=== PATIENT | female | born 1945 | race Caucasian/White ===

== ENCOUNTER → 2018-09-28 | Day surgery (SDC) | payer MEDICARE, BC ==
[2018-09-18 15:32] LABS: BASOPHILS # (AUTO) 0.1 (0.0-0.1); BASOPHILS % 1.1 % (0.0-1.0); EOSINOPHILS # (AUTO) 0.2 (0.0-0.4); EOSINOPHILS % 2.4 % (0.0-6.0); HEMATOCRIT 41.4 % (34.2-44.1); HEMOGLOBIN 13.5 g/dL (12.0-16.0); LYMPHOCYTES # (AUTO) 1.6 (1.0-3.2); LYMPHOCYTES % 21.7 % (18.0-39.1); MEAN CORPUSCULAR HEMOGLOBIN 27.5 pg (28-32); MEAN CORPUSCULAR HGB CONC 32.6 g/dL (31-35); MEAN CORPUSCULAR VOLUME 84.3 fL (81-99); MONOCYTES # (AUTO) 0.6 (0.2-0.8); MONOCYTES % 7.6 % (4.4-11.3); NEUTROPHILS % 66.9 % (38.7-80.0); PLATELET COUNT 368 x10e3/uL (140-360); RED BLOOD COUNT 4.91 x10e6/uL (3.6-5.1); RED CELL DISTRIBUTION WIDTH 13.6 % (11.7-14.4)
[2018-09-18 15:52] LABS: ANION GAP 16.5 mmol/L (8-16); CALCIUM 9.5 mg/dL (8.4-10.2); CREATININE, SERUM 1.31 mg/dL (0.57-1.11); POTASSIUM 3.5 mmol/L (3.5-5.1)
[~2018-09-28] MED LIST: ASPIR 8181 MG PO; BUPIVACAINE HC 0.75% PF 10ML VIAL INJ ONE; CHONDR SU A NA/HYALUR SOD 1 EACH KIT IO ONE; CYCLOPENTOLATE HCL 1% OPTH SOLN 2ML BTL ONE; EPINEPHRINE HCL 1:1000 1ML 1 MG/ML AMP ONE; FENTANYL CITRATE/PF 100MCG/2 ML INJ ONE; GATIFLOXACIN(OPTH) 5 ML LIQD ONE; HYDROCHLOROTHIA25 MG PO; JARDIANCE PO; LEXAPRO10 MG PO; LIDOCAINE 2% /EPINEPHRINE 20 ML SDV INJ ONE; LIDOCAINE HCL-PF 4% 40 MG/1 ML 5ML AMP ONE; METFORMIN HCL500 MG PO; MIDAZOLAM HCL 2 MG/2 ML VIAL ONE; OMEPRAZOLE40 MG PO; PHENYLEPHRINE HCL 2 ML DROPS ONE; PILOCARPINE HCL(OPTH) 15 ML LIQD ONE; POVIDONE IODINE 5% (OPTH) 30 ML BTL ONE; PROPOFOL IV EMULSION 10 MG/ML 20 ML VIAL ONE; TOBRAMYCIN/DEXAMETHASONE(OPTH) 3.5 GM TUBE ONE
[2018-09-28 10:35] VITALS: BP 107/65
== END | disposition home or self-care (01) ==
LOC: OR 06:50
PROVIDERS: ATTEND Ophthalmology
DX: H25.12 Age-related nuclear cataract, left eye (principal); F32.9 Major depressive disorder, single episode, unspecified; K21.9 Gastro-esophageal reflux disease without esophagitis; E11.9 Type 2 diabetes mellitus without complications; N20.0 Calculus of kidney; Z01.810 Encounter for preprocedural cardiovascular examination; Z01.812 Encounter for preprocedural laboratory examination; Z79.84 Long term (current) use of oral hypoglycemic drugs; Z79.82 Long term (current) use of aspirin
CPT/HCPCS: 36415 ×2; 66982; 80048; 82948; 85025; 93005; J0171; J2001; J2250; J2704; V2632; J3010

== ENCOUNTER → 2018-11-23 | Day surgery (SDC) | payer MEDICARE, BC ==
[2018-11-09 16:57] LABS: BASOPHILS # (AUTO) 0.1 (0.0-0.1); BASOPHILS % 1.2 % (0.0-1.0); EOSINOPHILS # (AUTO) 0.2 (0.0-0.4); EOSINOPHILS % 2.5 % (0.0-6.0); HEMATOCRIT 41.5 % (34.2-44.1); HEMOGLOBIN 13.1 g/dL (12.0-16.0); LYMPHOCYTES # (AUTO) 1.8 (1.0-3.2); LYMPHOCYTES % 23.7 % (18.0-39.1); MEAN CORPUSCULAR HEMOGLOBIN 26.6 pg (28-32); MEAN CORPUSCULAR HGB CONC 31.6 g/dL (31-35); MEAN CORPUSCULAR VOLUME 84.3 fL (81-99); MONOCYTES # (AUTO) 0.5 (0.2-0.8); MONOCYTES % 6.4 % (4.4-11.3); NEUTROPHILS # (AUTO) 4.9 (2.1-6.9); NEUTROPHILS % 65.9 % (38.7-80.0); PLATELET COUNT 394 x10e3/uL (140-360); RED BLOOD COUNT 4.92 x10e6/uL (3.6-5.1); RED CELL DISTRIBUTION WIDTH 14.3 % (11.7-14.4)
[~2018-11-23] MED LIST changes: +BALANCED SALT SOLN (OPTH) 15 ML BTL IO ONE; -CHONDR SU A NA/HYALUR SOD 1 EACH KIT IO ONE; +LIDOCAINE HCL 2% LOCAL INJ 5 ML SDV VIAL INJ ONE
[2018-11-23 09:25] VITALS: BP 116/88
== END | disposition home or self-care (01) ==
LOC: OR 05:57
PROVIDERS: ATTEND Ophthalmology
DX: H25.11 Age-related nuclear cataract, right eye (principal); K21.9 Gastro-esophageal reflux disease without esophagitis; F32.9 Major depressive disorder, single episode, unspecified; F03.90 Unspecified dementia, unspecified severity, without behavioral disturbance, psychotic disturbance, mood disturbance, and anxiety; Z01.812 Encounter for preprocedural laboratory examination; Z79.82 Long term (current) use of aspirin; Z79.84 Long term (current) use of oral hypoglycemic drugs
CPT/HCPCS: 36415 ×2; 66982; 82948; 85025; J0171; J2001 ×2; J2250; J2704; J3010; V2632

== ENCOUNTER 2020-01-04 16:36 | Observation (INO) | payer MEDICARE, BC ==
[~2020-01-04] VITALS: Ht 149.9 cm; Wt 65.3 kg
[~2020-01-04 16:36] MED LIST changes: -BALANCED SALT SOLN (OPTH) 15 ML BTL IO ONE; -BUPIVACAINE HC 0.75% PF 10ML VIAL INJ ONE; -CYCLOPENTOLATE HCL 1% OPTH SOLN 2ML BTL ONE; -EPINEPHRINE HCL 1:1000 1ML 1 MG/ML AMP ONE; -FENTANYL CITRATE/PF 100MCG/2 ML INJ ONE; -GATIFLOXACIN(OPTH) 5 ML LIQD ONE; -LIDOCAINE 2% /EPINEPHRINE 20 ML SDV INJ ONE; -LIDOCAINE HCL 2% LOCAL INJ 5 ML SDV VIAL INJ ONE; -LIDOCAINE HCL-PF 4% 40 MG/1 ML 5ML AMP ONE; -MIDAZOLAM HCL 2 MG/2 ML VIAL ONE; -PHENYLEPHRINE HCL 2 ML DROPS ONE; -PILOCARPINE HCL(OPTH) 15 ML LIQD ONE; -POVIDONE IODINE 5% (OPTH) 30 ML BTL ONE; -PROPOFOL IV EMULSION 10 MG/ML 20 ML VIAL ONE; -TOBRAMYCIN/DEXAMETHASONE(OPTH) 3.5 GM TUBE ONE
[2020-01-04 17:21] LABS: BASOPHILS # (AUTO) 0.1 (0.0-0.1); BASOPHILS % 1.1 % (0.0-1.0); EOSINOPHILS # (AUTO) 0.1 (0.0-0.4); EOSINOPHILS % 1.2 % (0.0-6.0); HEMATOCRIT 38.5 % (34.2-44.1); HEMOGLOBIN 12.3 g/dL (12.0-16.0); LYMPHOCYTES # (AUTO) 0.8 (1.0-3.2); LYMPHOCYTES % 11.2 % (18.0-39.1); MEAN CORPUSCULAR HEMOGLOBIN 27.6 pg (28-32); MEAN CORPUSCULAR HGB CONC 31.9 g/dL (31-35); MEAN CORPUSCULAR VOLUME 86.3 fL (81-99); MONOCYTES # (AUTO) 0.6 (0.2-0.8); MONOCYTES % 8.3 % (4.4-11.3); NEUTROPHILS # (AUTO) 5.8 (2.1-6.9); NEUTROPHILS % 77.9 % (38.7-80.0); PLATELET COUNT 265 x10e3/uL (140-360); RED BLOOD COUNT 4.46 x10e6/uL (3.6-5.1)
--- NOTE | 2020-01-04 17:31 | Emergency Department Note ---
History of Present Illnes History of Present Illness Chief Complaint: Neurological History of Present Illness This is a 74 year old female Chief Complaint Comment Patient in from home via EMS with reports of confusion and a fall at home. Patient reports that she was sitting on the side of the bed and slipped down onto the floor on to her bottom. Patient reports that she was having trouble getting up so she called her friend and neighbor to come and help her. Per friend who is in the room with her, the patient was confused at home and vomiting a lot and said that she has not been "normal" since. Per EMS, the patient was able to respond to questions but was slow to answer and her blood sugar was over 300. Historian: Patient, Friend, Music Sound Light Technician/EMS Arrival Mode: [facility] Can Reforming Machine Operator Required: No Onset (how long ago): day(s) (4) Location: None Quality: confusion Radiation: Reports non-radiation Severity: mild Onset quality: gradual Duration (how long): day(s) (4) Timing of current episode: constant Progression: worsening Chronicity: new Context: Reports recent illness (Diarrhea); Denies recent surgery Relieving factors: none Exacerbating factors: none Associated symptoms: Reports denies other symptoms Treatments prior to arrival: none Past Medical/Family History Physician Review I have reviewed the patient's past medical and family history. Any updates have been documented here. Past Medical History Recent Fever: No Clinical Suspicion of Infectio: No New/Unexplained Change in Ment: Yes Past Medical History: Diabetes, Depression, Hyperlipedemia Other Medical History: DEPRESSION FLUID RETENTION Past Surgical History: T&A Other Surgery: RIGHT KNEE Other Last Tetanus: UNKNOWN Review of Systems Review of Systems Constitutional: Reports malaise EENTM: Reports no symptoms Cardiovascular: Reports no symptoms Respiratory: Reports no symptoms Gastrointestinal: Reports no symptoms Genitourinary: Reports no symptoms Musculoskeletal: Reports no symptoms Integumentary: Reports no symptoms Neurological: Reports as per HPI Psychological: Reports no symptoms Endocrine: Reports no symptoms Hematological/Lymphatic: Reports no symptoms Physical Exam Related Data Allergies: Coded Allergies: codeine (Verified Allergy, Unknown, 01/04/20) Triage Vital Signs Vital Signs Date Time Temp Pulse Resp B/P (MAP) Pulse Ox O2 Delivery O2 Flow Rate FiO2 01/04/20 16:51 98.1 96 16 115/72 100 Room Air Vital signs reviewed: Yes Physical Exam CONSTITUTIONAL Constitutional: Present well-developed, Present well-nourished HENT HENT: Present normocephalic, Present atraumatic, Present oropharynx clear/mois t, Present nose normal HENT L/R: Present left ext ear normal, Present right ext ear normal EYES Eyes: Reports PERRL, Reports conjunctivae normal NECK Neck: Present ROM normal PULMONARY Pulmonary: Present effort normal, Present breath sounds normal CARDIOVASCULAR Cardiovascular: Present regular rhythm, Present heart sounds normal, Present capillary refill normal, Present normal rate GASTROINTESTINAL Abdominal: Present soft, Present nontender, Present bowel sounds normal GENITOURINARY Genitourinary: Present exam deferred SKIN Skin: Present warm, Present dry MUSCULOSKELETAL Musculoskeletal: Present ROM normal NEUROLOGICAL Neurological: Present alert, Present oriented x 3, Present no gross motor or sensory deficits PSYCHOLOGICAL Psychological: Present mood/affect normal, Present judgement normal Results Laboratory Laboratory Laboratory Tests Test 01/04/20 17:08 Assessment & Plan Medical Decision Making MDM 74 y.o f presents for fall off of bed and confusion. Stroke vs infection vs dementia among others. Ct, labs, cardiacs, EKG ordered. Admit to [facility] for PNA. darwin Perla given Assessment & Plan Final Impression: (1) Pneumonia Depart Disposition: ADMITTED Last Vital Signs Date Time Temp Pulse Resp B/P (MAP) Pulse Ox O2 Delivery O2 Flow Rate FiO2 01/04/20 16:51 98.1 96 16 115/72 100 Room Air Home Meds Reported Medications Omeprazole (OMEPRAZOLE) 40 Mg Capsule.dr, 20 MG PO DAILY 09/18/18 Metformin Hcl (METFORMIN HCL) 500 Mg Tablet, 500 MG PO BID, #60 TAB 09/18/18 Escitalopram Oxalate (LEXAPRO) 10 Mg Tablet, 20 MG PO DAILY, #30 TAB 09/18/18 [Jardiance] No Conflict Check, 100 MG PO DAILY 09/18/18 Aspirin (ASPIR 81) 81 Mg Tablet., 81 MG PO DAILY 09/18/18 АННА ANNE MD Jan 04, 2020 17:31
[2020-01-04 17:35] LABS: INR 0.88; PROTHROMBIN TIME 12.4 seconds (11.9-14.5)
--- NOTE | 2020-01-04 17:36 | Diagnostic Imaging Report ---
CT BRAIN WO HISTORY: Right hand numbness COMPARISON: None. Technique: Noncontrast axial scans were obtained from skull base to the vertex. Coronal and sagittal reconstructions obtained from the axial data. One or more of the following dose reduction techniques were used: Automated exposure control, adjustment of the mA and/or kV according to patient size, and/or utilization of iterative reconstruction technique. DISCUSSION: Scalp/Skull: Unremarkable. Brain sulci: Mildly prominent. Ventricles: Compensatory dilatation. Extra-axial spaces: No masses or fluid collections. Carotid and vertebral artery calcifications are present. Parenchyma: Mild bilateral deep white matter hypodensity is likely chronic microvascular ischemic change. Otherwise, no masses, hemorrhage, or large vascular territory acute infarct. Dural sinuses: No abnormal densities. Sellar/Suprasellar region: Intact. Skull base: Intact. Incidental findings: None. IMPRESSION: 1. No acute intracranial abnormalities. 2. Mild supratentorial chronic microvascular ischemic change. Generalized cerebral volume loss. Signed by: Dr. Raimundo Rasmussen M.D. on 01/04/2020 5:33 PM
[2020-01-04 17:41] LABS: ALBUMIN 3.6 g/dL (3.5-5.0); ALBUMIN/GLOBULIN RATIO 1.1 (0.8-2.0); ANION GAP 13.9 mmol/L (8-16); CALCIUM 9.6 mg/dL (8.4-10.2); CREATININE, SERUM 1.72 mg/dL (0.57-1.11); POTASSIUM 3.9 mmol/L (3.5-5.1)
--- NOTE | 2020-01-04 17:46 | Diagnostic Imaging Report ---
EXAMINATION: CHEST SINGLE (PORTABLE) INDICATION: ^AMS COMPARISON: None FINDINGS: TUBES and LINES: None. LUNGS: Normal lung volumes. Streaky left lung base retrocardiac opacity. PLEURA: No pleural effusion or pneumothorax. HEART AND MEDIASTINUM: The cardiomediastinal silhouette is unremarkable given technique. BONES AND SOFT TISSUES: No acute osseous lesion. Soft tissues are unremarkable. UPPER ABDOMEN: No free air under the diaphragm. IMPRESSION: Streaky left lung base retrocardiac opacity, may represent atelectasis versus developing infectious process in appropriate clinical setting. Signed by: Dr. Tomas Salazar M.D. on 01/04/2020 5:43 PM
[2020-01-04] MEDS ORDERED: AZITHROMYCIN 250 MG TAB PO ONE (18:00)
[2020-01-04] MEDS ORDERED: CEFTRIAXONE SOD 1 GM/NS 50 ML 50 ML IV ONE (18:00)
--- OUTSIDE RECORDS SUMMARY | 2020-01-04 18:04 | XMS REPORT | Continuity of Care Document ---
Author Author [facility] Organization [facility] Address [address] [place] [id number] Phone Unavailable Care Team Providers Care Lens Grinder Rough Name Role Phone Florence Olvera Attphys Unavailable Problems This patient has no known problems. Allergies, Adverse Reactions, Alerts This patient has no known allergies or adverse reactions. Medications This patient has no known medications. Procedures This patient has no known procedures. Results Test Description Test Time Test Comments Results Result Comments Source CHEST SINGLE (PORTABLE) 2020-01-04 17:40:00 [facility] : 1945 Sex: F [facility] [address] [address] Patient Name: DAFNE CHEUNG MR #: [id number] : 1945 Age/Sex: 74/F Req #: [id number] [facility] Physician: Ordered by: Анна Olvera MD Report #: [id number] Location: ER Room/Bed: Procedure: [id number] DX/CHEST SINGLE (PORTABLE) Exam Date: Exam Time: REPORT STATUS: Signed EXAMINATION: CHEST SINGLE (PORTABLE) INDICATION: AMS COMPARISON: None FINDINGS: TUBES and LINES: None. LUNGS: Normal lung volumes. Streaky left lung base retrocardiac opacity. PLEURA: No pleural effusion or pneumothorax. HEART AND MEDIASTINUM: The cardiomediastinal silhouette is unremarkable given technique. BONES AND SOFT TISSUES: No acute osseous lesion. Soft tissues are unremarkable. UPPER ABDOMEN: No free air under the diaphragm. IMPRESSION: Streaky left lung base retrocardiac opacity, may represent atelectasis versus developing infectious process in appropriate clinical setting. Signed by: Dr. Jefe Salazar M.D. on 01/04/2020 5:43 PM Dictated By: JEFE SALAZAR MD 42 Transcribed By: RYAN on 01/04/201742 COPY TO: АННА OLVERA MD CT BRAIN WO 2020-01-04 17:31:00 [facility] : 1945 Sex: [place] [address] [address] Patient Name: DAFNE CHEUNG MR #: [id number] : 1945 Age/Sex: 74/F Req #: [id number] [facility] Physician: Ordered by: Анна Olvera MD Report #: [id number] Location: Room/Bed: Procedure: [id number] CT/CT BRAIN WO Exam Date: Exam Time: REPORT STATUS: Signed CT BRAIN WO HISTORY: Right hand numbness COMPARISON: None. Technique: Noncontrast axial scans were obtained from skull base to the vertex. Coronal and sagittal reconstructions obtained from the axial data. One or more of the following dose reduction techniques were used: Automated exposure control, adjustment of the mA and/or kV according to patient size, and/or utilization of iterative reconstruction technique. DISCUSSION: Scalp/Skull: Unremarkable. Brain sulci: Mildly prominent. Ventricles: Compensatory dilatation. Extra-axial spaces: No masses or fluid collections. Carotid and vertebral artery calcifications are present. Parenchyma: Mild bilateral deep white matter hypodensity is likely chronic microvascular ischemic change. Otherwise, no masses, hemorrhage, or large vascular territory acute infarct. Dural sinuses: No abnormal densities. Sellar/Suprasellar region: Intact. Skull base: Intact. Incidental findings: None. IMPRESSION: 1. No acute intracranial abnormalities. 2. Mild supratentorial chronic microvascular ischemic change. Generalized cerebral volume loss. Signed by: Dr. Raimundo Rasmussen M.D. on 01/04/2020 5:33 PM Dictated By: RAIMUNDO RASMUSSEN MD 32 Transcribed By: RYAN on 01/04/201732 COPY TO: АННА OLVERA MD
--- OUTSIDE RECORDS SUMMARY | 2020-01-04 18:44 | XMS REPORT | Continuity of Care Document ---
Author Author [facility] Organization [facility] Address [address] [place] [id number] Phone Unavailable Care Team Providers Care Health Program Analyst Name Role Phone Florence Olvera Attphys Unavailable Problems This patient has no known problems. Allergies, Adverse Reactions, Alerts This patient has no known allergies or adverse reactions. Medications This patient has no known medications. Procedures This patient has no known procedures. Results Test Description Test Time Test Comments Results Result Comments Source CHEST SINGLE (PORTABLE) 2020-01-04 17:40:00 [facility] : 1945 Sex: F [facility] [address] [address] Patient Name: DAFNE CHEUNG MR #: [id number] : 1945 Age/Sex: 74/F Req #: [id number] [facility] Physician: Ordered by: Анна Olvera MD Report #: [id number] Location: ER Room/Bed: Procedure: [id number] DX/CHEST SINGLE (PORTABLE) Exam Date: Exam Time: [...] MD CT BRAIN WO 2020-01-04 17:31:00 [facility] : 1945 Sex: F [address] [address] Patient Name: DAFNE CHEUNG MR #: [id number] : 1945 Age/Sex: 74/F Req #: [id number] [facility] Physician: Ordered by: Анна Olvera MD Report #: [id number] Location: Room/Bed: Procedure: [id number] CT/CT BRAIN WO Exam Date: Exam Time: [...]
[2020-01-04 19:22] LABS: BILIRUBIN,URINE NEGATIVE (NEGATIVE); CLARITY,URINE HAZY (CLEAR); COLOR,URINE YELLOW (YELLOW); KETONES,URINE NEGATIVE (NEGATIVE); LEUKOCYTE ESTERASE ,URINE MODERATE (NEGATIVE); NITRITE,URINE POSITIVE (NEGATIVE); PROTEIN,URINE DIPSTICK NEGATIVE (NEGATIVE); URINE UROBILINOGEN 0.2 mg/dL (0.2 - 1)
[2020-01-04 19:34] LABS: BACTERIA,URINE MANY /HPF; EPITHELIAL CELLS,URINE FEW /LPF; RBC,URINE 0-5 /HPF (0-5); WBC,URINE (MAN) 21-50 /HPF (0-5)
[2020-01-04 21:30] VITALS: BP 130/52
[2020-01-04 21:34] VITALS: BP 130/52
[2020-01-04 21:51] VITALS: BP 130/52
[2020-01-04] MEDS ORDERED: BACLOFEN20 MG PO (22:14)
[2020-01-04] MEDS ORDERED: TRAZODONE HCL50 MG PO (23:57)
[2020-01-04] MEDS ORDERED: TRIAMTERENE-HCTZ1 EA PO (23:57)
[2020-01-04] MEDS ORDERED: ZETIA10 MG PO (23:57)
[2020-01-04] MEDS ORDERED: CRESTOR10 MG (23:57)
[2020-01-05] VITALS (9 sets, daily range): BP systolic 96–136; BP diastolic 54–78
[2020-01-05 06:03] LABS: BASOPHILS # (AUTO) 0.1 (0.0-0.1); BASOPHILS % 0.7 % (0.0-1.0); EOSINOPHILS # (AUTO) 0.2 (0.0-0.4); EOSINOPHILS % 2.2 % (0.0-6.0); HEMATOCRIT 35.4 % (34.2-44.1); HEMOGLOBIN 11.2 g/dL (12.0-16.0); LYMPHOCYTES # (AUTO) 1.2 (1.0-3.2); LYMPHOCYTES % 17.4 % (18.0-39.1); MEAN CORPUSCULAR HEMOGLOBIN 27.5 pg (28-32); MEAN CORPUSCULAR HGB CONC 31.6 g/dL (31-35); MEAN CORPUSCULAR VOLUME 86.8 fL (81-99); MONOCYTES # (AUTO) 0.6 (0.2-0.8); MONOCYTES % 8.3 % (4.4-11.3); NEUTROPHILS # (AUTO) 4.8 (2.1-6.9); NEUTROPHILS % 71.1 % (38.7-80.0); PLATELET COUNT 267 x10e3/uL (140-360); RED BLOOD COUNT 4.08 x10e6/uL (3.6-5.1)
[2020-01-05 06:22] LABS: ANION GAP 13.9 mmol/L (8-16); CALCIUM 9.3 mg/dL (8.4-10.2); CREATININE, SERUM 1.37 mg/dL (0.57-1.11); POTASSIUM 3.9 mmol/L (3.5-5.1)
--- NOTE | 2020-01-05 07:10 | NUR ---
RCD PT AT BED PT IS ALERT AND ORIENTED RESTING ON BED IV PATENT BED LOW AND LOCKED CALL LIGHT IN REACH
[2020-01-05] MEDS ORDERED: PNEUMOCOCCAL VACCINE POLYVALENT 23 MCG/0.5 ML VIAL IM SCH (10:00)
[2020-01-05] MEDS ORDERED: CEFTRIAXONE SOD 1 GM/NS 50 ML 50 ML IV SCH (17:30)
[2020-01-05] MEDS ORDERED: SODIUM CHLORIDE 0.9% 50ML 50 ML ONE (18:07)
--- NOTE | 2020-01-05 18:45 | NUR ---
pt resting on bed bed side report given to oncoming nurse
[2020-01-06] VITALS: BP 96/57
[2020-01-06] MEDS ORDERED: TRAZODONE HCL 50 MG TAB PO PRN ×2 (00:30→00:45)
[2020-01-06] MEDS ORDERED: SIMVASTATIN 40 MG TAB PO SCH ×2 (00:45→21:00)
[2020-01-06] MEDS: METFORMIN HCL 500 MG TAB PO SCH ×2 (01:00→08:00)
--- NOTE | 2020-01-06 01:02 | NUR ---
PATIENT UPSET THAT HER MEDICATION HAVENT BEEN GIVEN, EXPLAINED TO HER THAT ALL THE MEDICATION LISTED ON eMAR HAVE BEEN GIVEN, SHE STATED " MY MEDICATION I TAKE AT HOME HAVE NOT BEEN GIVEN", DELICIA LEWIS CONTACTED VIA TELEPHONE ABOUT MEDICATIONS, WAS TOLD TO VERIFY PATIENT HOME MEDICATION, PATIENT WENT ON HER PHARMACY WEBSITE AND LOOKED UP HER HOME MEDICATIONS, EACH MEDICATION VERBALLY VERIFIED WITH PATIENT DOSE, ROUTE AND SCHEDULED TIME, DELICIA LEWIS RECONTACTED VIA TELEPHONE ORDERED TO PROCEED WITH ADDING HER HOME MEDICATIONS ON eMAR, ORDER CARRIED OUT
--- NOTE | 2020-01-06 06:28 | NUR ---
reconfirmed dose of METFORMIN WITH PATIENT TWICE, SHE STATES " I TAKE ONE TABLET IN THE MORNING AND TWO AT NIGHT, BECAUSE MY DOCTOR WANTED ME TO TAKE ALL THREE IN THE MORNING AND I WANT DO THAT", PHARMACY CALLED TO CONFIRM DOSE ALSO, ORDER CHANGED TO REFLECT HOME MEDICATION DOSE
[2020-01-06 06:44] LABS: BASOPHILS # (AUTO) 0.1 (0.0-0.1); EOSINOPHILS # (AUTO) 0.3 (0.0-0.4); EOSINOPHILS % 4.6 % (0.0-6.0); HEMATOCRIT 35.7 % (34.2-44.1); HEMOGLOBIN 11.3 g/dL (12.0-16.0); LYMPHOCYTES # (AUTO) 1.4 (1.0-3.2); LYMPHOCYTES % 20.9 % (18.0-39.1); MEAN CORPUSCULAR HEMOGLOBIN 27.1 pg (28-32); MEAN CORPUSCULAR HGB CONC 31.7 g/dL (31-35); MEAN CORPUSCULAR VOLUME 85.6 fL (81-99); MONOCYTES # (AUTO) 0.6 (0.2-0.8); MONOCYTES % 8.9 % (4.4-11.3); NEUTROPHILS # (AUTO) 4.4 (2.1-6.9); NEUTROPHILS % 64.3 % (38.7-80.0); PLATELET COUNT 274 x10e3/uL (140-360); RED BLOOD COUNT 4.17 x10e6/uL (3.6-5.1)
--- NOTE | 2020-01-06 06:55 | Diagnostic Imaging Report ---
EXAMINATION: CHEST SINGLE (PORTABLE) INDICATION: ^pneumonia ^[id number] ^0621 COMPARISON: 01/04/2020 FINDINGS: AP view TUBES and LINES: None. LUNGS: Lungs are well inflated. Mild left basilar haziness PLEURA: No pneumothorax. HEART AND MEDIASTINUM: The cardiac silhouette is unremarkable. Unchanged thickening of the right paratracheal stripe and mild tracheal deviation to the right. BONES AND SOFT TISSUES: No acute osseous lesion. Soft tissues are unremarkable. UPPER ABDOMEN: No free air under the diaphragm. IMPRESSION: Unchanged left basilar haziness, representing small effusion/atelectasis versus pneumonia. Signed by: Dr. Lavon Fernandez MD on 01/06/2020 6:51 AM
[2020-01-06 07:04] LABS: ANION GAP 12.2 mmol/L (8-16); CALCIUM 9.3 mg/dL (8.4-10.2); CREATININE, SERUM 1.13 mg/dL (0.57-1.11); POTASSIUM 4.2 mmol/L (3.5-5.1)
--- NOTE | 2020-01-06 07:10 | NUR ---
RCD PT AT BED PT IS ALERT AND ORIENTED RESTING ON BED IV PATENT BED LOW AND LOCKED CALL LIGHT IN REACH
[2020-01-06 08:00] VITALS: BP 96/57
[2020-01-06 08:24] VITALS: BP 92/63
[2020-01-06] MEDS ORDERED: AZITHROMYCIN 250 MG TAB PO SCH (09:00)
[2020-01-06] MEDS ORDERED: ESCITALOPRAM OXALATE 10 MG TAB PO SCH ×2 (09:00→21:00)
[2020-01-06] MEDS ORDERED: ASPIRIN 325 MG TAB PO SCH (09:00)
[2020-01-06] MEDS: BACLOFEN 10 MG TAB PO SCH ×2 (09:00→15:00)
[2020-01-06] MEDS ORDERED: EZETIMIBE 10 MG TAB PO SCH (09:00)
[2020-01-06] MEDS ORDERED: METFORMIN HCL 500 MG TAB PO SCH ×2 (09:00→21:00)
[2020-01-06] MEDS ORDERED: ASPIRIN 81 MG CHEW TAB PO SCH (09:00)
[2020-01-06] MEDS ORDERED: PANTOPRAZOLE SOD 40 MG TABEC PO SCH (09:00)
[2020-01-06] MEDS: TRIAMTERENE/HCTZ 37.5-25 MG TAB PO SCH (09:00)
[2020-01-06 11:23] VITALS: BP 113/60
--- NOTE | 2020-01-06 14:46 | NUR ---
PATIENT WENT HOME IN SAFE CONDITION WITH HER
[2020-01-06 15:27] VITALS: BP 95/56
[2020-01-06] MEDS ORDERED: ZITHROMAX500 MG PO (15:52)
[2020-01-06] MEDS ORDERED: MUCINEX DM ER1 EACH PO (15:52)
[2020-01-06] MEDS ORDERED: CEFUROXIME250 MG PO (15:52)
[2020-01-06 16:00] VITALS: BP 110/76
--- NOTE | 2020-01-06 16:18 | Discharge Summary ---
PRIMARY CARE PROVIDER: Reji High MD ADMITTING DIAGNOSES: 1. Left lower lobe pneumonia. 2. Metabolic encephalopathy due to infection. 3. Type 2 diabetes. 4. Hypertension. 5. Hypercholesterolemia. 6. Degenerative disease of the spine. DISCHARGE DIAGNOSES: 1. Left lower lobe pneumonia. 2. Metabolic encephalopathy due to infection. 3. Type 2 diabetes. 4. Hypertension. 5. Hypercholesterolemia. 6. Degenerative disease of the spine. BRIEF HISTORY: Ms. Calvillo is a 74-year-old lady, who presented to the emergency department with cough and congestion for the last couple of days. Her chest x-ray showed left lung base opacity. The patient denied any fever or chills. HOSPITAL COURSE: The patient was admitted to the floor for observation. She was started on Rocephin and Zithromax. She felt better at the time of discharge. Her chest x-ray was essentially unchanged. She will be discharged home on Zithromax and cefuroxime along with Mucinex DM. She can resume ADA diet. She can resume regular activity. She can resume all of her home medications and she can follow up with her PCP within 2 weeks. MD MICHELL Garvey/HAIDER /[phone]
[2020-01-06] MEDS ORDERED: METFORMIN HCL 500 MG TAB CR PO SCH (21:00)
== END 2020-01-06 16:46 | disposition home or self-care, planned readmission (81) ==
LOC: ER 16:46 → ERHOLD 17:57 → INTOOBSV 17:57 → MED/SURG2 21:15
PROVIDERS: ADMIT Internal Medicine; ATTEND Internal Medicine
DX: J18.1 Lobar pneumonia, unspecified organism (principal); G93.41 Metabolic encephalopathy; I10 Essential (primary) hypertension; M47.9 Spondylosis, unspecified; Z11.59 Encounter for screening for other viral diseases
CPT/HCPCS: 36415 ×3; 70450; 71045 ×2; 80048 ×2; 80053; 81001; 83036; 83605; 84484; 85025 ×3; 85610; 93005; 99284; G0378 ×3; J0696 ×2; S0164; U0002

== ENCOUNTER 2020-01-09 06:50 | Emergency (ER) | payer MEDICARE, BC ==
[~2020-01-09] VITALS: Ht 149.9 cm; Wt 65.3 kg
[~2020-01-09 06:50] MED LIST changes: +BACLOFEN20 MG PO; +CEFUROXIME250 MG PO; +CRESTOR10 MG; +MUCINEX DM ER1 EACH PO; +TRAZODONE HCL50 MG PO; +TRIAMTERENE-HCTZ1 EA PO; +ZETIA10 MG PO; +ZITHROMAX500 MG PO
[2020-01-09] MEDS ORDERED: HYDROCODONE/APAP 5MG-325MG TAB PO ONE (07:15)
--- NOTE | 2020-01-09 07:45 | Emergency Department Note ---
History of Present Illnes History of Present Illness Chief Complaint: Extremity Trauma/Pain History of Present Illness This is a 74 year old female Patient in from home with complaints of right wrist pain that started Tuesday01/04/2020 after sliding off the bed onto the floor. Patient came to the ER that day and was admitted to the hospital for pneumonia on that day but the wrist pain was never mentioned or addressed. Patient returns today after being discharged from the hospital with right wrist pain. Patient has reduced range of motion to the right wrist and fingers due to the pain. Historian: Patient Arrival Mode: Car Autographer Required: No Onset (how long ago): day(s) (5) Location: RIGHT WRIST Quality: PAIN Radiation: Reports non-radiation Severity: moderate Onset quality: sudden Timing of current episode: constant Progression: worsening Chronicity: new Context: Reports recent illness (ADMITTED 5 D AGO AFTER FALL/SLID OFF BED, WAS CONFUSED AND ADMITTED FOR PNEUMONIA) Relieving factors: none Exacerbating factors: none Associated symptoms: Reports denies other symptoms Past Medical/Family History Physician Review I have reviewed the patient's past medical and family history. Any updates have been documented here. Past Medical History Recent Fever: No Clinical Suspicion of Infectio: No New/Unexplained Change in Ment: No Past Medical History: Hypertension, Diabetes, Asthma, UTI's, Migraines, Depression, Hyperlipedemia, Osteoarthritis Other Medical History: DEPRESSION FLUID RETENTION Past Surgical History: T&A Other Surgery: RIGHT KNEE Social History Smoking Cessation: Never Smoker Counseling Performed: No Alcohol Use: None Any Illegal Drug Use: No TB Exposure/Symptoms: No Physically hurt or threatened: No Family History Family history of heart diseas: No Other Last Tetanus: UNKNOWN Any Pre-Existing Lines (PICC,: No Review of Systems Review of Systems Constitutional: Reports no symptoms EENTM: Reports no symptoms Cardiovascular: Reports no symptoms Respiratory: Reports no symptoms Gastrointestinal: Reports no symptoms Genitourinary: Reports no symptoms Musculoskeletal: Reports as per HPI, Reports joint pain Integumentary: Reports no symptoms Neurological: Reports no symptoms Psychological: Reports no symptoms Endocrine: Reports no symptoms Hematological/Lymphatic: Reports no symptoms Physical Exam Related Data Allergies: Coded Allergies: codeine (Verified Allergy, Unknown, 01/04/20) Triage Vital Signs Vital Signs Date Time Temp Pulse Resp B/P (MAP) Pulse Ox O2 Delivery O2 Flow Rate FiO2 01/09/20 06:55 98.8 93 16 140/108 98 Room Air Vital signs reviewed: Yes Physical Exam CONSTITUTIONAL Constitutional: Present well-developed, Present well-nourished HENT HENT: Present normocephalic, Present atraumatic, Present oropharynx clear/moist, Present nose normal HENT L/R: Present left ext ear normal, Present right ext ear normal EYES Eyes: Reports PERRL, Reports conjunctivae normal NECK Neck: Present ROM normal PULMONARY Pulmonary: Present effort normal, Present breath sounds normal CARDIOVASCULAR Cardiovascular: Present regular rhythm, Present heart sounds normal, Present capillary refill normal, Present normal rate GASTROINTESTINAL Abdominal: Present soft, Present nontender, Present bowel sounds normal GENITOURINARY Genitourinary: Present exam deferred SKIN Skin: Present warm, Present dry MUSCULOSKELETAL Musculoskeletal: Present other (NO DEFORMITY, MILD TENDERNESS RIGHT WRIST WITH DECR ROM DUE TO PAIN AT WRIST, NO TENDERNESS AT SNUFF BOX, DISTAL N/V INTACT) NEUROLOGICAL Neurological: Present alert, Present oriented x 3, Present no gross motor or sensory deficits PSYCHOLOGICAL Psychological: Present mood/affect normal, Present judgement normal Results Imaging Imaging results reviewed: Yes Impressions X-ray right wrist 3 views HISTORY: Pain. COMPARISON: None available. FINDINGS: Bones: No acute displaced fracture. Osseous alignment is within normal limits. Osseous demineralization. Joints: Degenerative changes, joint space narrowing, osteophytes in the interphalangeal joints. Degenerative changes at the first carpometacarpal joint. Soft tissues: The soft tissues appear unremarkable. IMPRESSION: No acute radiographic osseous abnormality. 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 Signed by: Vidal Hickey DO on 01/09/2020 7:42 AM Assessment & Plan Medical Decision Making MDM RIGHT WRIST PAIN SINCE [facility] 5 D AGO WHEN SHE SLID OFF BED - CHECK XRAY R/O FX VS SPRAIN Reassessment Reassessment SPLINT, DC HOME, TYL PRN, TRAMADOL, F/U PCP AND DR HAYES Assessment & Plan Final Impression: (1) Right wrist sprain Depart Disposition: HOME, SELF-CARE Last Vital Signs Date Time Temp Pulse Resp B/P (MAP) Pulse Ox O2 Delivery O2 Flow Rate FiO2 01/09/20 06:55 98.8 93 16 140/108 98 Room Air Home Meds Active Scripts Guaifenesin/Dextromethorphan (MUCINEX DM ER 600-30 MG TABLET) 1 Each Tab.er.12h, 1 EACH PO Q6H PRN for COUGH, #20 TAB Prov:PJ GONSALEZ MD 01/06/20 Cefuroxime Axetil (CEFUROXIME) 250 Mg Tablet, 500 MG PO Q12H for 7 Days, TAB Prov:PJ GONSALEZ MD 01/06/20 Azithromycin (ZITHROMAX) 500 Mg Tablet, 500 MG PO DAILY, #5 Prov:PJ GONSALEZ MD 01/06/20 Reported Medications Triamterene/Hctz (TRIAMTERENE-HCTZ 37.5-25 MG TB) 1 Ea Tab, 1 EACH PO DAILY, TAB 01/04/20 Trazodone Hcl (TRAZODONE HCL) 50 Mg Tablet, 50 MG PO HS, #30 TAB 01/04/20 Rosuvastatin Calcium (CRESTOR) 10 Mg Tab THERAPEUTICALLY SUBSTITUTED WITH SIMVASTATIN 40MG 01/04/20 Ezetimibe (ZETIA) 10 Mg Tablet, 10 MG PO DAILY, #30 TAB 01/04/20 Baclofen (BACLOFEN) 20 Mg Tablet, 20 MG PO TID, TAB 01/04/20 Omeprazole (OMEPRAZOLE) 40 Mg Capsule.dr, 20 MG PO DAILY 09/18/18 Metformin Hcl (METFORMIN HCL) 500 Mg Tablet, 500 MG PO BID, #60 TAB 09/18/18 Escitalopram Oxalate (LEXAPRO) 10 Mg Tablet, 20 MG PO DAILY, #30 TAB 09/18/18 Aspirin (ASPIR 81) 81 Mg Tablet.dr, 81 MG PO DAILY 09/18/18 Discontinued Reported Medications [Jardiance] No Conflict Check, 100 MG PO DAILY 09/18/18 Medications in the ED Acetaminophen/ Hydrocodone Bitart 1 ea ONCE ONCE PO Last administered on 01/09/20at 07:21; Admin Dose 1 EA; Start 01/09/20 at 07:15; Stop 01/09/20 at 07:17; Status DC HUGO RAPHAEL MD Jan 09, 2020 07:45
--- OUTSIDE RECORDS SUMMARY | 2020-01-09 08:03 | XMS REPORT | Continuity of Care Document ---
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 Name Role Phone NO, PCP PCP Unavailable SWEET, A LAIRD Attphys Unavailable KILLAM, JP Attphys Unavailable KILLAM, PJ Admphys Unavailable Payers Payer Name Policy Type Policy Number Effective Date Expiration Date Zully cabrera [employer] Employees [id number] 2011 00:00:0 0 [facility] Medicare A & B [id number] 2010 00:00:00 [facility] Problems Condition Name Condition Details Condition Category Status Onset Date Resolution Date Last Treatment Date Treating Clinician Comments Source Pneumonia Problem Active [facility] Allergies, Adverse Reactions, Alerts Allergy Name Allergy Type Status Severity Reaction(s) Onset Date Inacti ve Date Treating Clinician Comments Source Codeine Allergy to substance Active 2020-01-04 00:00:00 [facility] Social History Social Habit Start Date Stop Date Quantity Comments Source Sex Assigned At 1945 00:00:00 1945 00[birth year]:00 Female [facility] Medications Ordered Medication Name Filled Medication Name Start Date Stop Da te Current Medication? Ordering Clinician Indication Dosage Frequency Signature (SIG) Comments Components Source Azithromycin (Zithromax) 500 Mg TABLET Azithromycin (Zithrom ax) 500 Mg TABLET 2020-01-06 15:52:00 Yes 500 Daily [facility] Cefuroxime Axetil (Cefuroxime) 250 Mg TABLET Cefuroxim e Axetil (Cefuroxime) 250 Mg TABLET 2020-01-06 15:52:00 Yes 500 Every 12 Hours [facility] Guaifenesin/Dextromethorphan (Mucinex Dm Er 600-30 Mg Tablet) 1 Each TAB.ER.12H Guaifenesin/Dextromethorphan (Mucinex Dm Er 600-30 Mg Tablet) 1 Each TAB.ER.12H 2020-01-06 15:52:00 Yes 1 Every 6 Hours as n eeded for Cough [facility] Aspirin (Aspir 81) 81 Mg TABLET. Aspirin (Aspir 81) 81 Mg TABLET. Yes 81 Daily [facility] Baclofen Baclofen Yes 20 Three Times A Day [facility] Escitalopram Oxalate (Lexapro) 10 Mg TABLET Escitalopr am Oxalate (Lexapro) 10 Mg TABLET Yes 20 Daily [facility] Ezetimibe (Zetia) 10 Mg TABLET Ezetimibe (Zetia) 10 Mg TABLET Yes 10 Daily [facility] Metformin Hcl Metformin Hcl Yes 500 Twice A Day [facility] Omeprazole Omeprazole Yes 20 Daily [facility] Rosuvastatin Calcium (Crestor) 10 Mg TAB Rosuvastatin Calcium (Crestor) 10 Mg TAB Yes [facility] Trazodone Hcl Trazodone Hcl Yes 50 Bedtime [facility] Triamterene/Hctz (Triamterene-Hctz 37.5-25 Mg Tb) 1 Ea TAB Triamterene/Hctz (Triamterene-Hctz 37.5-25 Mg Tb) 1 Ea TAB Yes 1 Daily [facility] Jardiance Jardiance 2020-01-04 00:00:00 No 100 Daily [facility] Hydrochlorothiazide Hydrochlorothiazide 2018-11-09 00:00:00 No 25 Daily [facility] Vital Signs Vital Name Observation Time Observation Value Comments Source Body Temperature 2020-01-06 15:27:00 97.5 [degF] [facility] Weight 2020-01-04 21:53:00 144 [lb_av] [facility] BMI (Body Mass Index) 2020-01-04 21:53:00 29.1 kg/m2 [facility] Procedures Procedure Date / Time Performed Performing Clinician Berna bynum Computed tomography of brain without radiopaque contrast 2019-12 00:00:00 [facility] Plan of Care Planned Activity Planned Date Details Comments Source Instructions Pneumonia - Bacterial [facility] Results Test Description Test Time Test Comments Results Result Comments Source WRIST COMPLETE RIGHT 2020-01-09 07:40:00 [facility] 1945 Sex: [place] [address] Patient Name: DAFNE CHEUNG MR #: [id number] : 1945 Age/Sex: 74/F Req #: [id number] Adm Physician: Ordered by: HUGO RAPHAEL MD Report #: [id number] Location: ER Room/Bed: Procedure: [id number] DX/WRIST COMPLETE RIGHT Exam Date: 01/09/20 Exam Time: 0715 REPORT STATUS: Signed X-ray right wrist 3 views HISTORY: Pain. COMPARISON: None available. FINDINGS: Bones: No acute displaced fracture. Osseous alignment is within normal limits. Osseous demineralization. Joints: Degenerative changes, joint space narrowing, osteophytes in the interphalangeal joints. Degenerative changes at the first carpometacarpal joint. Soft tissues: The soft tissues appear unremarkable. IMPRESSION: No acute radiographic osseous abnormality. 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 Signed by: Vidal Santizo DO on 01/09/2020 7:42 AM Dictated By: VIDAL SANTIZO DO 1 Transcribed By: RYAN on 01/09/20741 COPY TO: HUGO RAPHAEL MD [facility] (PORTABLE) 2020-01-06 06:50:00 [facility] 1945 Sex: [place] [address] Patient Name: DAFNE CHEUNG MR #: [id number] : 1945 Age/Sex: 74/F Req #: [id number] Adm Physician: PJ GONSALEZ MD Ordered by: DAVID AHUMADA LODGING MANAGER Report #: [id number] Location: MED/SURG2 [facility]: [facility] Procedure: [id number] DX/CHEST SINGLE (PORTABLE) Exam Date: 01/06/20 Exam Time: 620 REPORT STATUS: Signed EXAMINATION: CHEST SINGLE (PORTABLE) INDICATION: pneumonia [id number] COMPARISON: 01/04/2020 FINDINGS: AP view TUBES and LINES: None. LUNGS: Lungs are well inflated. Mild left basilar haziness PLEURA: No pneumothorax. HEART AND MEDIASTINUM: The cardiac silhouette is unremarkable. Unchanged thickening of the right paratracheal stripe and mild tracheal deviation to the right. BONES AND SOFT TISSUES: No acute osseous lesion. Soft tissues are unremarkable. UPPER ABDOMEN: No free air under the diaphragm. IMPRESSION: Unchanged left basilar haziness, representing small effusion/atelectasis versus pneumonia. Signed by: Dr. Lavon Ivan MD on 01/06/2020 6:51 AM Dictated By: LAVON IVAN MD 0 Transcribed By: RYAN on 01/06/20650 COPY TO: DAVID AHUMADA LODGING MANAGER Blood leukocytes automated count (number/volume) 2020-01-06 05:55:00 Test Item White Blood Count (test code = 6690-2) 6.76 4.8-10.8 [facility] erythrocytes automated count (number/volume)2020-01-06 05:55:00* Test Item Value Reference Range Interpretation Comments Red Blood Count (test code = 789-8) 4.17 3.6-5.1 [facility]Blood hemoglobin measurement (moles/volume)2020-01-06 05:55:00* Test Item Value Reference Range Interpretation Comments Hemoglobin (test code = 98429-5) 11.3 12.0-16.0 [facility] HospitalAutomated blood hematocrit (volume fraction)2020-01-06 05:55:00* Test Item Value Reference Range Interpretation Comments Hematocrit (test code = 4544-3) 35.7 34.2-44.1 [facility] HospitalAutomated erythrocyte mean corpuscular dseybr4311-96-94 05:55:00* Test Item Value Reference Range Interpretation Comments Mean Corpuscular Volume (test code = 787-2) 85.6 81-99 [facility] HospitalAutomated erythrocyte mean corpuscular hemoglobin (mass per erythrocyte)2020-01-06 05:55:00* Test Item Value Reference Range Interpretation Comments Mean Corpuscular Hemoglobin (test code = 785-6) 27.1 28-32 [facility] HospitalAutomated erythrocyte mean corpuscular hemoglobin concentration measurement (mass/volume)2020-01-06 05:55:00* Test Item Value Reference Range Interpretation Comments Mean Corpuscular Hemoglobin Concent (test code = 786-4) 31.7 31-35 [facility] HospitalRDW PlaQk-Zgo3598-62-18 05:55:00* Test Item Value Reference Range Interpretation Comments Red Cell Distribution Width (test code = 37252-9) 13.0 11.7 -14.4 [facility] HospitalAutomated blood platelet count (count/volume)2020-01-06 05:55:00* Test Item Value Reference Range Interpretation Comments Platelet Count (test code = 777-3) 274 140-360 [facility] neutrophil count as percentage of total bojvmaufyh3805-78-86 05:55:00* Test Item Value Reference Range Interpretation Comments Neutrophils (%) (Auto) (test code = 62635-0) 64.3 38.7-80.0 [facility] HospitalAutomated blood lymphocyte count as percentage ot total wgbvizlzqq3526-70-03 05:55:00* Test Item Value Reference Range Interpretation Comments Lymphocytes (%) (Auto) (test code = 736-9) 20.9 18.0-39.1 [facility] blood monocyte count as percentage of total cdxkebdblg5870-65-14 05:55:00* Test Item Value Reference Range Interpretation Comments Monocytes (%) (Auto) (test code = 5905-5) 8.9 4.4-11.3 [facility] HospitalAutomated blood eosinophil count as percentage of total llthfqurjk1593-20-73 05:55:00* Test Item Value Reference Range Interpretation Comments Eosinophils (%) (Auto) (test code = 713-8) 4.6 0.0-6.0 [facility] HospitalAutomated blood basophil count as percentage of total kyywgfuime4975-03-16 05:55:00* Test Item Value Reference Range Interpretation Comments Basophils (%) (Auto) (test code = 706-2) 1.0 0.0-1.0 [facility] HospitalFluoroscopic procedure less than one hour szsaaqfx2325-81-41 05:55:00* Test Item Value Reference Range Interpretation Comments IM GRANULOCYTES % (test code = IM GRANULOCYTES %) 0.3 0.0- 1.0 [facility] HospitalAutat[facility] blood neutrophil count 2020-01-06 05:55:00* Test Item Value Reference Range Interpretation Comments Neutrophils # (Auto) (test code = 751-8) 4.4 2.1-6.9 [facility] HospitalBlood lymphocytes count (number/volume) 2020-01-06 05:55:00* Test Item Value Reference Range Interpretation Comments Lymphocytes # (Auto) (test code = 05095-9) 1.4 1.0-3.2 [facility] monocytes automated count (number/volume)2020-01-06 05:55:00* Test Item Value Reference Range Interpretation Comments Monocytes # (Auto) (test code = 742-7) 0.6 0.2-0.8 [facility] HospitalAutomated blood eosinophil count 2020-01-06 05:55:00* Test Item Value Reference Range Interpretation Comments Eosinophils # (Auto) (test code = 711-2) 0.3 0.0-0.4 [facility] HospitalAutomated blood basophil count (count/volume)2020-01-06 05:55:00* Test Item Value Reference Range Interpretation Comments Basophils # (Auto) (test code = 704-7) 0.1 0.0-0.1 [facility] HospitalFluoroscopic procedure less than one hour zaxtwclq0736-67-68 05:55:00* Test Item Value Reference Range Interpretation Comments Absolute Immature Granulocyte (auto (luke t code = Absolute Immature Granulocyte (auto) 0.02 0-0.1 [facility] or [facility] sodium measurement (moles/volume)2020-01-06 05:55:00* Test Item Value Reference Range Interpretation Comments Sodium Level (test code = 2951-2) 140 136-145 [facility]ererum or plasma potassium measurement (moles/volume)2020-01-06 05:55:00* Test Item Value Reference Range Interpretation Comments Potassium Level (test code = 2823-3) 4.2 3.5-5.1 [facility] or plasma chloride measurement (moles/volume)2020-01-06 05:55:00* Test Item Value Reference Range Interpretation Comments Chloride Level (test code = 2075-0) 105 98-107 [facility]ererum or plasma carbon dioxide, total measurement (moles/volume)2020-01-06 05:55:00* Test Item Value Reference Range Interpretation Comments Carbon Dioxide Level (test code = 2028-9) 27 22-29 [facility]ererum or plasma anion ccl4043-02-90 05:55:00* Test Item Value Reference Range Interpretation Comments Anion Gap (test code = 43048-9) 12.2 8-16 [facility] or plasma urea nitrogen measurement (mass/volume)2020-01-06 05:55:00* Test Item Value Reference Range Interpretation Comments Blood Urea Nitrogen (test code = 3094-0) 27 7-26 [facility]ererum or plasma creatinine measurement (mass/volume)2020-01-06 05:55:00* Test Item Value Reference Range Interpretation Comments Creatinine (test code = 2160-0) 1.13 0.57-1.11 [facility]ererum or plasma urea nitrogen/creatinine mass morkd9482-47-43 05:55:00* Test Item Value Reference Range Interpretation Comments BUN/Creatinine Ratio (test code = 3097-3) 24 6-25 [facility] HospitalEstimated glomerular filtration rate (GFR) zskuwjbhujlgo6889-59-05 05:55:00* Test Item Value Reference Range Interpretation Comments Estimat Glomerular Filtration Rate (test code = 838263021) 47 >60 Ranges were taken from the National Kidney Disease Education Program and the [facility] Kidney Foundation literature.Reference ranges:60 or greater: Egffai49-27 ( for 3 consecutive months): Chronic kidney disease 15 or less: Kidney failureMemorial Hermann Cypress HospitalGlucose dbmaapxboil5203-70-70 05:55:00* Test Item Value Reference Range Interpretation Comments Glucose Level (test code = AND0235) 145 74-118 [facility]ere[facility] or plasma calcium measurement (mass/volume)2020-01-06 05:55:00* Test Item Value Reference Range Interpretation Comments Calcium Level (test code = 69056-8) 9.3 8.4-10.2 [facility] HospitalFluoroscopic procedure less than one hour eebjfnap6687-38-79 05:55:00* Test Item Value Reference Range Interpretation Comments Hemoglobin A1c Percent (test code = Hemoglobin A1c Percent) 6.2 4.0-7.0 [facility] HospitalFluoroscopic procedure less than one hour deubmycs1502-80-08 19:10:00* Test Item Value Reference Range Interpretation Comments Lactic Acid Level (test code = Lactic Acid Level) 1.9 0.5- 2.0 [facility] HospitalUrine color bljqtledtpldk3418-70-59 19:05:00* Test Item Value Reference Range Interpretation Comments Urine Color (test code = 5778-6) YELLOW YELLOW [facility] HospitalUrine khenccp6634-54-68 19:05:00* Test Item Value Reference Range Interpretation Comments Urine Clarity (test code = 00690-9) HAZY CLEAR [facility] Centerpecific gravity of Urine by Test strip 2020-01-04 19:05:00* Test Item Value Reference Range Interpretation Comments Urine Specific [place] (test code = 5811-5) 1.020 1.010-1.02 5 [facility] HospitalUrine pH measurement by automated test lgkeq5272-57-48 19:05:00* Test Item Value Reference Range Interpretation Comments Urine pH (test code = 68354-5) 5.5 5-7 [facility] HospitalUrine leukocyte esterase detection by zkdcmssv7027-87-75 19:05:00* Test Item Value Reference Range Interpretation Comments Urine Leukocyte Esterase (test code = 5799-2) MODERATE NEGATIVE [facility] HospitalUrine nitrite xunphxvms7559-48-52 19:05:00* Test Item Value Reference Range Interpretation Comments Urine Nitrite (test code = 59410-0) POSITIVE NEGATIVE [facility] HospitalUrine protein measurement by test strip (mass/volume)2020-01-04 19:05:00* Test Item Value Reference Range Interpretation Comments Urine Protein (test code = 5804-0) NEGATIVE NEGATIVE [facility] HospitalUrine glucose lmkcleuvx3784-71-93 19:05:00* Test Item Value Reference Range Interpretation Comments Urine Glucose (UA) (test code = 2349-9) NEGATIVE NEGATIVE [facility] HospitalUrine ketones detection by automated test hivio3178-47-96 19:05:00* Test Item Value Reference Range Interpretation Comments Urine Ketones (test code = 05149-2) NEGATIVE NEGATIVE [facility] HospitalUrine urobilinogen measurement by test strip (mass/volume)2020-01-04 19:05:00* Test Item Value Reference Range Interpretation Comments Urine Urobilinogen (test code = 99696-5) 0.2 0.2-1 [facility] HospitalUrine total bilirubin measurement (mass/volume)2020-01-04 19:05:00* Test Item Value Reference Range Interpretation Comments Urine Bilirubin (test code = 1978-6) NEGATIVE NEGATIVE [facility] HospitalUrine erythrocytes rzqywvijf5888-18-71 19:05:00* Test Item Value Reference Range Interpretation Comments Urine Blood (test code = 73905-5) TRACE NEGATIVE [facility] HospitalAutomated urine sediment leukocyte count by microscopy (number/high power field)2020-01-04 19:05:00* Test Item Value Reference Range Interpretation Comments Urine WBC (test code = 5821-4) 21-50 0-5 [facility] HospitalErythrocytes detection in urine sediment by light sncumvljqe9005-02-51 19:05:00* Test Item Value Reference Range Interpretation Comments Urine RBC (test code = 58144-1) 0-5 0-5 [facility] HospitalBacteria detection in urine sediment by light atpgdhcwbe4997-63-86 19:05:00* Test Item Value Reference Range Interpretation Comments Urine Bacteria (test code = 22312-8) MANY NONE [facility] HospitalEpithelial cells detection in urine sediment by light qastlobwlh1476-18-86 19:05:00* Test Item Value Reference Range Interpretation Comments Urine Epithelial Cells (test code = 40611-5) FEW NONE [facility] HospitalFluoroscopic procedure less than one hour mjzsqkdo7747-67-38 18:19:00* Test Item Value Reference Range Interpretation Comments Coronavirus (PCR) (test code = Coronavirus (PCR)) NOT DETECTED NOTD ETECTED SARS-CoV-2 PCRHologic Aptima SARS-CoV-2 assay is a nucleic amplification test in tended for the qualitative detection of RNA from SARS-CoV-2 from nasopharyngeal (LODGING MANAGER) specimens. It is used under Emergency Use Authorization (EUA) by FDA.A posi tive result is indicative of the presence of SARS-CoV-2 RNA. Clinical correlatio n with patient history and other diagnostic information is necessary to determin e patient infection status.A negative (Not Detected) result does not preclude SA RS-CoV-2 infection. Clinical Correlation with patient history and other diagnost ic information should be used in patient management decisions.Invalid: Unable to generate a valid result on this specimen. Please submit a new specimen for repr at testing oc clinically indicated.Tesing performed by:[facility] [place] [address] [id number], Toni salazar MD, PhDMemorial Hermann Cypress HospitalCHEST SINGLE (PORTABLE) 2020-01-04 17:40:00 [facility] : 1945 Sex: F [employer] Patient s [facility] [address] [address] Patient Name: DAFNE CHEUNG MR #: [id number] : 1945 Age/Sex: 74/F Req #: [id number] Adm Physician: PJ GONSALEZ MD Ordered by: Анна Olvera MD Report #: [id number] Location: MED/SURG2 [facility]: [facility] Procedure: [id number] DX/CHEST SINGLE (PORTABLE) Exam Date: 01/04/20 Exam Time: 1728 REPORT STATUS: Signed EXAMINATION: CHEST SINGLE (POR TABLE) INDICATION: AMS COMPARISON: None FINDINGS: TUBES and LINES: None. LUNGS: Normal lung volumes. Streaky left claudio g base retrocardiac opacity. PLEURA: No pleural effusion or pneumothorax . HEART AND MEDIASTINUM: The cardiomediastinal silhouette is unremarkable given technique. BONES AND SOFT TISSUES: No acute osseous lesion. Soft tissues are unremarkable. UPPER ABDOMEN: No free air under the diaphragm . IMPRESSION: Streaky left lung base retrocardiac opacity, may repre sent atelectasis versus developing infectious process in appropriate clinical setting. Signed by: Dr. Jefe Salazar M.D. on 01/04/2020 5:43 PM Dictated By: JEFE SALAZAR MD 42 Transcribed By: RYAN on 01/04/201742 COPY TO: АННА MORIN MD CT BRAIN [id number] 17:31:[address] [facility] : 1945 Sex: F [employer] Patient [facility] [address] [place] [address] Patient Name: DAFNE CHEUNG MR #: [id number] : 1945 Age/Sex: 74/F Req #: [id number] Adm Physician: PJ GONSALEZ MD Ordered by: Анна Olvera MD Report #: [id number] Location: MED/SURG2 [facility]Bed: [facility] Procedure: [id number] CT/CT BRAIN WO Exam Date: 01/03 Exam Time: 1716 REPORT STATUS: Signed CT BRAIN WO HISTORY: Right hand numbne ss COMPARISON: None. Technique: Noncontrast axial scans were obtai amanda from skull base to the vertex. Coronal and sagittal reconstructions obtai amanda from the axial data. One or more of the following dose reduction techniqu es were used: Automated exposure control, adjustment of the mA and/or kV accor ding to patient size, and/or utilization of iterative reconstruction technique . DISCUSSION: Scalp/Skull: Unremarkable. Brain sulci: Mildly promine nt. Ventricles: Compensatory dilatation. Extra-axial spaces: No masses or fl uid collections. Carotid and vertebral artery calcifications are present. Parenchyma: Mild bilateral deep white matter hypodensity is likely chronic m icrovascular ischemic change. Otherwise, no masses, hemorrhage, or large va scular territory acute infarct. Dural sinuses: No abnormal densities. Se llar/Suprasellar region: Intact. Skull base: Intact. Incidental findings: No ne. IMPRESSION: 1. No acute intracranial abnormalities. 2. Mild supra tentorial chronic microvascular ischemic change. Generalized cerebral volume l oss. Signed by: Dr. Raimundo Rasmussen M.D. on 01/04/2020 5:33 PM Di ctated By: RAIMUNDO RASMUSSEN MD 32 Transcribed By: RYAN on 01/04/201732 COPY TO: АННА ECKERT MD Prothrombin time (PT) in platelet poor plasma by coagulation ywfhe5457-03-74 17:08:00* Test Item Value Reference Range Interpretation Comments Prothrombin Time (test code = 5902-2) 12.4 11.9-14.5 [facility] HospitalINR in Platelet poor plasma by Coagulation rupjs4585-38-97 17:08:00* Test Item Value Reference Range Interpretation Comments Prothromb Time International Ratio (test code = 6301-6) 0.88 Oral Anticoagulant Therapy INR Values:1. Low Intensity Therapy 1.5 - 2.02 . Moderate Intensity Therapy 2.0 - 3.03. High Intensity Therapy(1) 2.5 - 3. 54. High Intensity Therapy(2) 3.0 - 4.05. Panic Value INR > 5.0 [facility] total bilirubin measurement (mass/volume)2020-01-04 17:08:00* Test Item Value Reference Range Interpretation Comments Total Bilirubin (test code = 1975-2) 0.4 0.2-1.2 [facility] HospitalFluoroscopic procedure less than one hour zxllzrlt6966-29-17 17:08:00* Test Item Value Reference Range Interpretation Comments Aspartate Amino Transf (AST/SGOT) (test code = Aspartate Amino Transf (AST/SGOT)) 17 5-34 [facility] Centererum or plasma alanine aminotransferase measurement (enzymatic activity/volume)2020-01-04 17:08:00* Test Item Value Reference Range Interpretation Comments Alanine Aminotransferase (ALT/SGPT) (test code = 1742-6) 15 0-55 [facility] or plasma protein measurement (mass/volume)2020-01-04 17:08:00* Test Item Value Reference Range Interpretation Comments Total Protein (test code = 2885-2) 7.0 6.5-8.1 [facility]ere[facility] or plasma albumin measurement (mass/volume)2020-01-04 17:08:00* Test Item Value Reference Range Interpretation Comments Albumin (test code = 1751-7) 3.6 3.5-5.0 [facility] HospitalPlasma globulin measurement (mass/volume) 2020-01-04 17:08:00* Test Item Value Reference Range Interpretation Comments Globulin (test code = 01866-5) 3.4 2.3-3.5 [facility] or plasma albumin/globulin mass vcrku6329-97-68 17:08:00* Test Item Value Reference Range Interpretation Comments Albumin/Globulin Ratio (test code = 1759-0) 1.1 0.8-2.0 [facility]rum or plasma alkaline phosphatase measurement (enzymatic activity/volume)2020-01-04 17:08:00* Test Item Value Reference Range Interpretation Comments Alkaline Phosphatase (test code = 6768-6) 57 40-150 [facility] HospitalTroponin I measurement by highly sensitive enzyme fiywqqrhcyf0618-45-27 17:08:00* Test Item Value Reference Range Interpretation Comments Troponin I (test code = 74585-6) < 0.001 0-0.300 [facility]
== END 2020-01-09 08:33 | disposition home or self-care (01) ==
LOC: ER 08:00
DX: M25.531 Pain in right wrist (principal); S63.501A Unspecified sprain of right wrist, initial encounter; W06.XXXA Fall from bed, initial encounter; Y93.84 Activity, sleeping; Y92.008 Other place in unspecified non-institutional (private) residence as the place of occurrence of the external cause; I10 Essential (primary) hypertension; E11.9 Type 2 diabetes mellitus without complications; E78.5 Hyperlipidemia, unspecified; J45.909 Unspecified asthma, uncomplicated; F32.9 Major depressive disorder, single episode, unspecified
CPT/HCPCS: 99283

== ENCOUNTER → 2020-02-01 | Outpatient (CLI) | payer MEDICARE, BC | LOC: RAD 12:27 | PROVIDERS: ATTEND Internal Medicine | DX: M19.041 Primary osteoarthritis, right hand (principal) ==

== ENCOUNTER 2020-03-17 11:59 | Emergency (ER) | payer MEDICARE, BC ==
[~2020-03-17] VITALS: Ht 149.9 cm; Wt 65.3 kg
[2020-03-17 13:05] LABS: BASOPHILS # (AUTO) 0.1 (0.0-0.1); BASOPHILS % 1.1 % (0.0-1.0); EOSINOPHILS # (AUTO) 0.3 (0.0-0.4); EOSINOPHILS % 4.2 % (0.0-6.0); HEMATOCRIT 34.9 % (34.2-44.1); HEMOGLOBIN 11.2 g/dL (12.0-16.0); LYMPHOCYTES # (AUTO) 1.2 (1.0-3.2); LYMPHOCYTES % 17.8 % (18.0-39.1); MEAN CORPUSCULAR HEMOGLOBIN 27.3 pg (28-32); MEAN CORPUSCULAR HGB CONC 32.1 g/dL (31-35); MEAN CORPUSCULAR VOLUME 85.1 fL (81-99); MONOCYTES # (AUTO) 0.4 (0.2-0.8); MONOCYTES % 6.2 % (4.4-11.3); NEUTROPHILS # (AUTO) 4.7 (2.1-6.9); NEUTROPHILS % 70.5 % (38.7-80.0); PLATELET COUNT 265 x10e3/uL (140-360); RED CELL DISTRIBUTION WIDTH 13.7 % (11.7-14.4)
[2020-03-17 13:30] LABS: ALBUMIN 3.4 g/dL (3.5-5.0); ALBUMIN/GLOBULIN RATIO 1.1 (0.8-2.0); ANION GAP 14.5 mmol/L (8-16); CALCIUM 9.1 mg/dL (8.4-10.2); CREATININE, SERUM 1.76 mg/dL (0.57-1.11); POTASSIUM 4.5 mmol/L (3.5-5.1)
== END 2020-03-17 14:22 | disposition home or self-care (01) ==
LOC: ER 12:19
DX: R06.02 Shortness of breath (principal); R05 Cough; R53.1 Weakness; I10 Essential (primary) hypertension; E11.9 Type 2 diabetes mellitus without complications; J45.909 Unspecified asthma, uncomplicated; E78.5 Hyperlipidemia, unspecified; F32.9 Major depressive disorder, single episode, unspecified; Z88.6 Allergy status to analgesic agent; Z79.82 Long term (current) use of aspirin; Z79.84 Long term (current) use of oral hypoglycemic drugs; Z87.440 Personal history of urinary (tract) infections
CPT/HCPCS: 36415; 71045; 80053; 83880; 84484; 85025; 93005; 99284

== ENCOUNTER 2020-03-30 13:39 | Emergency (ER) | payer MEDICARE, BC ==
[~2020-03-30] VITALS: Ht 149.9 cm; Wt 65.3 kg
[2020-03-30] MEDS ORDERED: SODIUM CHLORIDE 0.9% 1000ML 1,000 ML IV STA (14:04)
[2020-03-30] MEDS ORDERED: PANTOPRAZOLE 40 MG 10ML VIAL IV NR (14:15)
[2020-03-30] MEDS ORDERED: ONDANSETRON HCL INJ 2MG/ML 2ML 2 MG/ML VIAL IV ONE (14:15)
[2020-03-30 15:07] LABS: BASOPHILS # (AUTO) 0.1 (0.0-0.1); BASOPHILS % 0.8 % (0.0-1.0); EOSINOPHILS # (AUTO) 0.1 (0.0-0.4); EOSINOPHILS % 0.8 % (0.0-6.0); HEMATOCRIT 41.9 % (34.2-44.1); HEMOGLOBIN 13.4 g/dL (12.0-16.0); LYMPHOCYTES # (AUTO) 0.6 (1.0-3.2); LYMPHOCYTES % 6.7 % (18.0-39.1); MEAN CORPUSCULAR HEMOGLOBIN 27.3 pg (28-32); MEAN CORPUSCULAR VOLUME 85.5 fL (81-99); MONOCYTES # (AUTO) 0.3 (0.2-0.8); MONOCYTES % 3.3 % (4.4-11.3); NEUTROPHILS # (AUTO) 7.4 (2.1-6.9); PLATELET COUNT 313 x10e3/uL (140-360); RED CELL DISTRIBUTION WIDTH 13.7 % (11.7-14.4)
[2020-03-30 15:17] LABS: INR 0.89; PROTHROMBIN TIME 12.5 seconds (11.9-14.5)
[2020-03-30 15:18] LABS: PARTIAL THROMBOPLASTIN TIME 26.9 seconds (23.8-35.5)
[2020-03-30 15:25] LABS: ALBUMIN 4.2 g/dL (3.5-5.0); ALBUMIN/GLOBULIN RATIO 1.1 (0.8-2.0); ANION GAP 17.7 mmol/L (8-16); CALCIUM 9.7 mg/dL (8.4-10.2); CREATININE, SERUM 1.81 mg/dL (0.57-1.11); MAGNESIUM 1.6 MG/DL (1.3-2.1); POTASSIUM 3.7 mmol/L (3.5-5.1)
[2020-03-30 15:31] LABS: CREATINE KINASE MB 1.6 ng/mL (0-5.0)
[2020-03-30 15:56] LABS: COLOR,URINE YELLOW (YELLOW); KETONES,URINE NEGATIVE (NEGATIVE); LEUKOCYTE ESTERASE ,URINE NEGATIVE (NEGATIVE); NITRITE,URINE NEGATIVE (NEGATIVE); PROTEIN,URINE DIPSTICK NEGATIVE (NEGATIVE); URINE UROBILINOGEN 0.2 mg/dL (0.2 - 1)
[2020-03-30 16:09] LABS: WBC,URINE (MAN) 0-5 /HPF (0-5)
[2020-03-30 16:10] LABS: BACTERIA,URINE MANY /HPF; EPITHELIAL CELLS,URINE FEW /LPF; RBC,URINE 0-5 /HPF (0-5)
[2020-03-30 16:11] LABS: CLARITY,URINE SL CLOUDY (CLEAR)
[2020-03-30 22:00] VITALS: BP 135/99
== END 2020-03-31 09:24 | disposition home or self-care (01) ==
LOC: ER 13:44
DX: R11.2 Nausea with vomiting, unspecified (principal); R94.31 Abnormal electrocardiogram [ECG] [EKG]; I10 Essential (primary) hypertension; E11.9 Type 2 diabetes mellitus without complications; E78.5 Hyperlipidemia, unspecified; F32.9 Major depressive disorder, single episode, unspecified
CPT/HCPCS: 36415; 70450; 71045; 72125; 74176; 80053; 81001; 82550; 82553; 83735; 84484; 85025; 85610; 85730; 87086; 93005; 99284; C9113; J2405; J7030